=== PATIENT | male | born 1930 | race Caucasian/White ===

== ENCOUNTER 2016-06-16 10:38 | Inpatient (IN) | payer MEDICARE, BC, OTHER ==
--- NOTE | 2016-06-16 10:51 | ED ---
General Adult HPI - General Chief complaint: Altered Mental Status Stated complaint: Altered Mental Status Time Seen by Provider: 06/16/16 10:40 Source: patient, EMS, RN notes reviewed Mode of arrival: EMS Limitations: altered mental status, physical limitation - History of Present Illness Initial comments: Patient is a 85-year-old male presenting to the emergency Department after being found on the ground. Patient is essentially nonverbal and provides no history. Patient reportedly is a hospice patient and hospice nurse was on scene. Family had refused IV. It is unclear why patient was sent to the hospital. Family is not present at this time. Hospice nurse was not present. It is unclear why patient is on hospice. - Related Data Home Medications Medication Instructions Recorded Confirmed No Known Home Medications [No 06/16/16 06/16/16 Known Home Medications] Allergies Allergy/AdvReac Type Severity Reaction Status Date / Time No Known Allergies Allergy Verified 06/16/16 12:32 Review of Systems ROS Statement: Those systems with pertinent positive or pertinent negative responses have been documented in the HPI. ROS Other: All systems not noted in ROS Statement are negative. Limitations: ROS unobtainable due to patients medical condition Past Medical History Past Medical History: COPD, CVA/TIA, GERD/Reflux, Hyperlipidemia, Myocardial Infarction ([place]) Additional Past Medical History / Comment(s): orthostatic hypotension, [place] 1999. Last Myocardial Infarction Date:: unknown History of Any Multi-Drug Resistant Organisms: None Reported Past Surgical History: AICD, Appendectomy, Hernia Repair Additional Past Surgical History / Comment(s): defibrillator Past Anesthesia/Blood Transfusion Reactions: No Reported Reaction Type of Cardiac Device: AICD Device Placement Date:: 2013 Past Psychological History: No Psychological Hx Reported Smoking Status: Former smoker Past Alcohol Use History: Daily Additional Past Alcohol Use History / Comment(s): history of drinks a 5th of scotch daily Past Drug Use History: None Reported Additional Drug Use History / Comment(s): 4 months since last alcohol drink - Past Family History Mother History Unknown: Yes Family Medical History: No Reported History Father History Unknown: Yes Family Medical History: No Reported History General Exam Limitations: no limitations General appearance: lethargic Head exam: Present: atraumatic Eye exam: Present: other (Cataract) ENT exam: Present: mucous membranes dry Neck exam: Present: normal inspection. Absent: tenderness Respiratory exam: Present: normal lung sounds bilaterally Cardiovascular Exam: Present: tachycardia, irregular rhythm GI/Abdominal exam: Present: soft. Absent: tenderness Extremities exam: Present: other (Somewhat contracted arms and legs) Neurological exam: Present: altered, other (Very limited exam. Does follow some simple commands. Very limited speech. No focal deficits.) Expanded Eye Response: (1) no response Motor Response: (6) obeys commands (Does follow some Simple commands) Verbal Response: incomprehensible sounds Psychiatric exam: Present: flat affect Skin exam: Present: cyanosis (Fingers and toes) Course Vital Signs 06/16/16 06/16/16 10:40 13:05 Temperature 96.6 F L 96.7 F L Pulse Rate 57 L 62 Respiratory 16 16 Rate Blood Pressure 98/55 102/57 O2 Sat by Pulse 98 99 Oximetry - Reevaluation(s) Reevaluation #1: 06/16/16 11:33 Discussion had with daughter who would like IV and further testing done. She states patient should remain DO NOT RESUSCITATE however. EKG Findings - EKG Comments: EKG Findings:: A. fib with RVR, rate 114. QRS 76. QT 348. QTC 479. Right axis. Normal QRS. Lateral ST depression and T wave inversion. Medical Decision Making - Medical Decision Making Patient reexamined and slightly improved. Family states they're unclear why patient is exactly on hospice. They believe it was for generalized health. Patient has not been taking care of himself. Patient has been declining over the past week or more. Patient has not been eating well. Family updated on results and plan. Case discussed in detail with Dr. Cormier, who will admit for Dr. Ahuja. - Lab Data Result diagrams: 06/16/16 13:58 06/16/16 12:22 Lab Results 06/16/16 06/16/16 06/16/16 Range/Units 12:22 12:22 12:51 WBC (3.8-10.6) k/uL RBC (4.30-5.90) m/uL Hgb (13.0-17.5) gm/dL Hct (39.0-53.0) % MCV (80.0-100.0) fL MCH (25.0-35.0) pg MCHC (31.0-37.0) g/dL RDW (11.5-15.5) % Plt Count (150-450) k/uL Neutrophils % % Lymphocytes % % Monocytes % % Eosinophils % % Basophils % % Neutrophils # (1.3-7.7) k/uL Lymphocytes # (1.0-4.8) k/uL Monocytes # (0-1.0) k/uL Eosinophils # (0-0.7) k/uL Basophils # (0-0.2) k/uL Hypochromasia Macrocytosis Sodium 145 (137-145) mmol/L Potassium 4.8 (3.5-5.1) mmol/L Chloride 102 (98-107) mmol/L Carbon Dioxide 23 (22-30) mmol/L Anion Gap 20 mmol/L BUN 14 (9-20) mg/dL Creatinine 0.78 (0.66-1.25) mg/dL Est GFR (MDRD) Af Amer >60 (>60 ml/min/1.73 sqM) Est GFR (MDRD) Non-Af >60 (>60 ml/min/1.73 sqM) Glucose 131 H (74-99) mg/dL POC Glucose (mg/dL) 126 H (75-99) mg/dL POC Glu Regenerator Operator ID Jaky Salazar Calcium 9.6 (8.4-10.2) mg/dL Total Bilirubin 0.9 (0.2-1.3) mg/dL AST 40 (17-59) U/L ALT 24 (21-72) U/L Alkaline Phosphatase 153 H (38-126) U/L Total Creatine Kinase 72 (55-170) U/L CK-MB (CK-2) 1.9 (0.0-2.4) ng/mL CK-MB (CK-2) Rel Index 2.6 Troponin I 0.027 (0.000-0.034) ng/mL Total Protein 7.9 (6.3-8.2) g/dL Albumin 3.8 (3.5-5.0) g/dL Urine Color Urine Appearance (Clear) Urine pH (5.0-8.0) Ur Specific [place] (1.001-1.035) Urine Protein (Negative) Urine Glucose (UA) (Negative) Urine Ketones (Negative) Urine Blood (Negative) Urine Nitrate (Negative) Urine Bilirubin (Negative) Urine Urobilinogen (<2.0) mg/dL Ur Leukocyte Esterase (Negative) Urine RBC (0-5) /hpf Urine WBC (0-5) /hpf Urine WBC Clumps (None) /hpf Ur Squamous Epith Cells (0-4) /hpf Urine Bacteria (None) /hpf Hyaline Casts (0-2) /lpf Urine Mucus (None) /hpf Urine Opiates Screen (NotDetected) Ur Oxycodone Screen (NotDetected) Urine Methadone Screen (NotDetected) Ur Propoxyphene Screen (NotDetected) Ur Barbiturates Screen (NotDetected) U Tricyclic Antidepress (NotDetected) Ur Phencyclidine Scrn (NotDetected) Ur Amphetamines Screen (NotDetected) U Methamphetamines Scrn (NotDetected) U Benzodiazepines Scrn (NotDetected) Urine Cocaine Screen (NotDetected) U Marijuana (THC) Screen (NotDetected) 06/16/16 06/16/16 Range/Units 13:03 13:58 WBC 5.4 (3.8-10.6) k/uL RBC 3.94 L (4.30-5.90) m/uL Hgb 13.4 (13.0-17.5) gm/dL Hct 42.0 (39.0-53.0) % MCV 106.7 H (80.0-100.0) fL MCH 34.1 (25.0-35.0) pg MCHC 31.9 (31.0-37.0) g/dL RDW 13.9 (11.5-15.5) % Plt Count 144 L (150-450) k/uL Neutrophils % 83 % Lymphocytes % 6 % Monocytes % 7 % Eosinophils % 1 % Basophils % 0 % Neutrophils # 4.5 (1.3-7.7) k/uL Lymphocytes # 0.3 L (1.0-4.8) k/uL Monocytes # 0.4 (0-1.0) k/uL Eosinophils # 0.0 (0-0.7) k/uL Basophils # 0.0 (0-0.2) k/uL Hypochromasia Moderate Macrocytosis Moderate Sodium (137-145) mmol/L Potassium (3.5-5.1) mmol/L Chloride (98-107) mmol/L Carbon Dioxide (22-30) mmol/L Anion Gap mmol/L BUN (9-20) mg/dL Creatinine (0.66-1.25) mg/dL Est GFR (MDRD) Af Amer (>60 ml/min/1.73 sqM) Est GFR (MDRD) Non-Af (>60 ml/min/1.73 sqM) Glucose (74-99) mg/dL POC Glucose (mg/dL) (75-99) mg/dL POC Glu Regenerator Operator ID Calcium (8.4-10.2) mg/dL Total Bilirubin (0.2-1.3) mg/dL AST (17-59) U/L ALT (21-72) U/L Alkaline Phosphatase (38-126) U/L Total Creatine Kinase (55-170) U/L CK-MB (CK-2) (0.0-2.4) ng/mL CK-MB (CK-2) Rel Index Troponin I (0.000-0.034) ng/mL Total Protein (6.3-8.2) g/dL Albumin (3.5-5.0) g/dL Urine Color Dark Brown Urine Appearance Turbid (Clear) Urine pH 6.0 (5.0-8.0) Ur Specific [place] 1.022 (1.001-1.035) Urine Protein 2+ H (Negative) Urine Glucose (UA) Negative (Negative) Urine Ketones 2+ H (Negative) Urine Blood Small H (Negative) Urine Nitrate Positive (Negative) Urine Bilirubin 1+ H (Negative) Urine Urobilinogen 8.0 (<2.0) mg/dL Ur Leukocyte Esterase Large H (Negative) Urine RBC 23 H (0-5) /hpf Urine WBC >182 H (0-5) /hpf Urine WBC Clumps Moderate H (None) /hpf Ur Squamous Epith Cells 4 (0-4) /hpf Urine Bacteria Moderate H (None) /hpf Hyaline Casts 34 H (0-2) /lpf Urine Mucus Many H (None) /hpf Urine Opiates Screen Detected H (NotDetected) Ur Oxycodone Screen Not Detected (NotDetected) Urine Methadone Screen Not Detected (NotDetected) Ur Propoxyphene Screen Not Detected (NotDetected) Ur Barbiturates Screen Not Detected (NotDetected) U Tricyclic Antidepress Not Detected (NotDetected) Ur Phencyclidine Scrn Not Detected (NotDetected) Ur Amphetamines Screen Not Detected (NotDetected) U Methamphetamines Scrn Not Detected (NotDetected) U Benzodiazepines Scrn Not Detected (NotDetected) Urine Cocaine Screen Not Detected (NotDetected) U Marijuana (THC) Screen Not Detected (NotDetected) - Radiology Data Radiology results: image reviewed (Chest x-ray shows bilateral infiltrates and interstitial change. Pelvis x-ray shows no acute fracture. Computed tomography scan the brain shows old infarcts. No change from prior.) Disposition Clinical Impression: Altered mental status, Urinary tract infection, Pneumonia Disposition: ADMITTED IP TO THIS HOSP Condition: Serious
[2016-06-16] MEDS ORDERED: SODIUM CHLORIDE 0.9% 500 ML IV ONE (11:37)
[2016-06-16] MEDS ORDERED: SODIUM CHLORIDE 0.9% 1,000 ML IV ONE (11:37)
[2016-06-16 12:56] LABS: ALT 24 U/L (21-72); AST 40 U/L (17-59); Anion Gap 20 mmol/L; Blood Urea Nitrogen 14 mg/dL (9-20); Calcium 9.6 mg/dL (8.4-10.2); Carbon Dioxide 23 mmol/L (22-30); Chloride 102 mmol/L (98-107); Glucose 131 mg/dL (74-99); Non-African American GFR(MDRD) >60 (>60 ml/min/1.73 sqM); Potassium 4.8 mmol/L (3.5-5.1); Sodium 145 mmol/L (137-145); Total Bilirubin 0.9 mg/dL (0.2-1.3); Total Protein 7.9 g/dL (6.3-8.2)
[2016-06-16 12:57] LABS: Alkaline Phosphatase 153 U/L (38-126)
[2016-06-16 13:04] LABS: Glucose,Whole Blood 126 mg/dL (75-99)
[2016-06-16 13:14] LABS: Troponin I 0.027 ng/mL (0.000-0.034)
[2016-06-16 13:15] LABS: Creatine Kinase MB 1.9 ng/mL (0.0-2.4)
[2016-06-16 13:32] LABS: Appearance,Urine Turbid (Clear); Bilirubin,Urine 1+ (Negative); Glucose,Urine (UA) Negative (Negative); Ketones,Urine 2+ (Negative); Leukocyte Esterase,Urine Large (Negative); Mucus,Urine Many /hpf; Nitrite,Urine Positive (Negative); Particle Count 103793; Protein,Urine 2+ (Negative); RBC,Urine 23 /hpf (0-5); Specific Gravity,Urine 1.022 (1.001-1.035); Squamous Epithelial Cell,Urine 4 /hpf (0-4); UA Billing (MACRO vs. MICRO) MICRO; WBC,Urine >182 /hpf (0-5)
[2016-06-16 13:58] LABS: Bacteria,Urine Moderate /hpf
--- NOTE | 2016-06-16 14:03 | CT ---
EXAMINATION TYPE: CT brain wo con DATE OF EXAM: 06/16/2016 1:56 PM COMPARISON: 03/26/2015 HISTORY: Patient poor historian CT DLP: [id number] mGycm Automated exposure control for dose reduction was used. FINDINGS: There is cerebral cortical atrophy. There is hypodensity in the right posterior frontal lobe and also the left temporal lobe related to old infarcts. There is no mass effect nor midline shift. There is no evidence of intracranial hemorrhage. The calvarium is intact. IMPRESSION: Bilateral old cerebral infarcts. No acute intracranial abnormality. Cerebral atrophy. No significant change compared to old exam.
--- NOTE | 2016-06-16 14:07 | XR ---
EXAMINATION TYPE: XR chest 2V DATE OF EXAM: 06/16/2016 1:56 PM COMPARISON: 12/25/2015 HISTORY: Altered mental status TECHNIQUE: Frontal and lateral views of the chest are obtained. FINDINGS: There is diffuse pneumonic consolidation in the left lung. There is extensive interstitial infiltrate in the right lung. There is a left axillary pacemaker with the lead tips in the right juanita tricle. Thoracic aorta is atheromatous. There is blunting of left costophrenic angle. IMPRESSION: There is consolidation and pleural fluid on the left side with probably also some volume loss. Diffuse interstitial infiltrate in the right lung. The chest appears slightly worse than old e xam. I do not suspect heart failure. Pulmonary vascularity is difficult to evaluate because of the ex tensive lung disease.
--- NOTE | 2016-06-16 14:08 | XR ---
EXAMINATION TYPE: XR pelvis AP view DATE OF EXAM: 06/16/2016 1:56 PM COMPARISON: NONE HISTORY: Pain TECHNIQUE: Single view FINDINGS: The pelvic ring is intact. Proximal femurs are intact. There is acetabular spurring. Sacroi liac joints are normal. There is a rounded metal density over the left ischium. 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 No fracture. Possible BB foreign body.
[2016-06-16 14:17] LABS: Basophils % (A) 0 %; CH 33.5; CHCM 31.5; Eosinophils % (A) 1 %; HDW 3.29; HGB 13.4 gm/dL (13.0-17.5); Hypochromasia Moderate; Luc # (Auto) 0.15; Luc % (Auto) 3; Lymphocytes # (A) 0.3 k/uL (1.0-4.8); Lymphocytes % (A) 6 %; MCH 34.1 pg (25.0-35.0); MCHC 31.9 g/dL (31.0-37.0); MCV 106.7 fL (80.0-100.0); Macrocytosis Moderate; Mean Platelet Volume 8.4; Monocytes # (A) 0.4 k/uL (0-1.0); Monocytes % (A) 7 %; Neutrophils # (A) 4.5 k/uL (1.3-7.7); Neutrophils % (A) 83 %; RBC 3.94 m/uL (4.30-5.90); RDW 13.9 % (11.5-15.5); WBC 5.4 k/uL (3.8-10.6)
[2016-06-16] MEDS ORDERED: PNEUMONIA PROTOCOL UTILIZED 1 EACH MISC PO PRN (15:12)
[2016-06-16] MEDS ORDERED: AZITHROMYCIN 500 MG in SODIUM CHLORIDE 0.9% 250 ML IVPB STA (15:12)
[2016-06-16] MEDS ORDERED: IPRATROPIUM-ALBUTEROL 3 ML NEB INHALATION PRN (15:12)
[2016-06-16] MEDS ORDERED: SODIUM CHLORIDE 0.9% 1,000 ML IV SCH (15:15)
[2016-06-16 15:21] LABS: INR 1.1 (<1.1); Prothrombin Time 11.1 sec (9.0-12.0)
[2016-06-16 15:45] LABS: Partial Thromboplastin Time 20.7 sec (22.0-30.0)
[2016-06-16] MEDS ORDERED: LORazepam 2 MG/ML SYRINGE IV PRN (17:57)
[2016-06-16] MEDS ORDERED: SCOPOLAMINE 1.5MG/72HR PATCH TRANSDERM PRN (17:57)
--- NOTE | 2016-06-16 17:58 | P.CNNES ---
History of Present Illness Consult date: 06/16/16 Reason for Consult: Patient with altered mental status and sepsis. History of Present Illness: This patient is a 85-year-old right-handed white male who is currently residing at [facility]. Apparently this morning he was found collapsed on the floor by one of the attending nurses. He was hard to arouse at the [facility]. He was then transported to the emergency room for further evaluation. It was unclear whether the patient was considered full hospice care at the nursing facility. His daughter is at bedside and states that he has been active at the [facility] and this was a new finding in terms of him being collapsed and unresponsive. He was brought into the emergency room and was evaluated in the ER by Dr. Mo. He underwent a computed tomography scan of the brain which revealed bilateral old cerebral infarcts. There was no acute pain intracranial abnormality. There was some cerebral atrophy. Laboratory testing revealed the patient to have a fulminant urinary tract infection. He was started on IV antibiotics and admitted to the hospital. Apparently he was very hard to arouse this morning according to the daughter. He is now slowly opening his eyes. He does follow only simple commands. According to the daughter he has not been eating well for the past 1 month and has been losing weight. He has not been taking proper care of himself. According to the daughter when they found him this morning collapsed on the floor he was foaming at the mouth. He has no previous history of seizures. He did not have any lacerations or contusions to that. No evidence of biting his tongue. Patient is now been admitted for complete neurological evaluation. Family is now going to make a decision on further care for this patient during this admission. Neurology is now been consulted for further evaluation and recommendations. Review of Systems Constitutional: Denies chills, Denies fever Eyes: denies blurred vision, denies pain Ears, nose, mouth and throat: Denies headache, Denies sore throat Cardiovascular: Denies chest pain, Denies shortness of breath Respiratory: Denies cough Gastrointestinal: Denies abdominal pain, Denies diarrhea, Denies nausea, Denies vomiting Musculoskeletal: Denies myalgias Integumentary: Denies pruritus, Denies rash Neurological: Reports aphasia, Reports change in mentation, Reports confusion, Reports convulsions, Reports memory loss, Denies numbness, Denies weakness Psychiatric: Denies anxiety, Denies depression Endocrine: Denies fatigue, Denies weight change Past Medical History Past Medical History: COPD, CVA/TIA, GERD/Reflux, Hyperlipidemia, Myocardial Infarction ([place]) Additional Past Medical History / Comment(s): orthostatic hypotension, [place] 1999. Last Myocardial Infarction Date:: unknown History of Any Multi-Drug Resistant Organisms: None Reported Past Surgical History: AICD, Appendectomy, Hernia Repair Additional Past Surgical History / Comment(s): defibrillator Past Anesthesia/Blood Transfusion Reactions: No Reported Reaction Type of Cardiac Device: AICD Device Placement Date:: 2013 Past Psychological History: No Psychological Hx Reported Smoking Status: Former smoker Past Alcohol Use History: Daily Additional Past Alcohol Use History / Comment(s): history of drinks a 5th of scotch daily Past Drug Use History: None Reported Additional Drug Use History / Comment(s): 4 months since last alcohol drink - Past Family History Mother History Unknown: Yes Family Medical History: No Reported History Father History Unknown: Yes Family Medical History: No Reported History Medications and Allergies Home Medications Medication Instructions Recorded Confirmed Type No Known Home Medications [No 06/16/16 06/16/16 History Known Home Medications] Allergies Allergy/AdvReac Type Severity Reaction Status Date / Time No Known Allergies Allergy Verified 06/16/16 12:32 Physical Examination - Vital Signs Vital Signs: Vital Signs Temp Pulse Resp BP Pulse Ox 06/16/16 15:32 97.4 F L 72 20 102/54 100 - Constitutional General appearance: average body habitus, cooperative, thin - EENT EENT: PERRL, mucous membranes moist - Respiratory Respiratory: lungs clear, normal breath sounds - Cardiovascular Cardiovascular: regular rate, normal S1, normal S2 Extremities: no peripheral edema bilaterally - Gastrointestinal Gastrointestinal: normoactive bowel sounds - Integumentary Integumentary: normal - Neurologic Cranial nerve examination: PERRL, VFF, face symmetric, tongue midline, intact gag reflex, normal palatal elevation Speech examination: global aphasia Sensorimotor examination: intact Motor examination - right side: 3/5: biceps, triceps, wrist flexion, wrist extension, yard supervisor, hip flexors, knee extensors, dorsiflexion, toe extension (EHL) , plantarflexion Motor examination - left side: 3/5: biceps, triceps, wrist flexion, wrist extension, yard supervisor, hip flexors, knee extensors, dorsiflexion, toe extension (EHL) , plantarflexion Detailed sensory examination: intact Reflex and gait examination: intact Reflexes: 1+: ankle, bicep, knee, tricep - Musculoskeletal Musculoskeletal: no pain - Psychiatric Psychiatric: mood/affect appropriate, cooperative Results - Laboratory Findings CBC and BMP: 06/16/16 13:58 06/16/16 12:22 Assessment and Plan (1) Acute encephalopathy Status: Acute Code(s): G93.40 - ENCEPHALOPATHY, UNSPECIFIED (2) Urinary tract infection Status: Acute Code(s): N39.0 - URINARY TRACT INFECTION, SITE NOT SPECIFIED (3) Protein calorie malnutrition Status: Acute Code(s): E46 - UNSPECIFIED PROTEIN-CALORIE MALNUTRITION (4) Dementia Status: Acute Code(s): F03.90 - UNSPECIFIED DEMENTIA WITHOUT BEHAVIORAL DISTURBANCE Plan: This patient is a 85-year-old right-handed white male who was found collapsed in his apartment at [facility] early this morning. It is unclear how long he may have been down. He was found to be foaming at the mouth when the nursing staff found him. He was transported to the emergency room where he was further evaluated today. He was seen in the ER by Dr. Mo. He underwent a computed tomography scan of the brain which was negative for any acute stroke or hemorrhage. There is evidence of bilateral old occipital stroke. Patient was found to have evidence of a fulminant urinary tract infection. He was started on IV antibiotics and admitted to Hospital. This patient likely has a diffuse metabolic encephalopathy secondary to urinary tract infection. Family is in the process of making a decision on long-term care for the patient. It is unclear whether they want him to go into a hospice program. They may also consider taking him home following this discharge. Doubt that he had a seizure but we will further evaluate with a routine EEG. His overall prognosis at this time remains very guarded. This case was discussed at length with the patient' s daughter at bedside. All of her questions are answered. She is aware of her father's very guarded condition at this time. Time with Patient: Greater than 30
--- NOTE | 2016-06-16 19:06 | HP ---
DATE OF ADMISSION: 06/06/2016 Patient is an 85-year-old with history of congestive heart failure, ejection fraction of 45% and history of dementia. Patient was made hospice last December and since then patient is in an [facility] home under hospice care. Patient apparently has dementia at that time and patient was made hospice by Neurology services. Apparently the patient has not been eating or drinking well. Patient's power of bookbinder chief is daughter. I did talk to power of bookbinder chief by phone and another daughter here at the bedside. Patient had a fall today after which patient was brought in here. Patient's family wanted does not know what to do when he fell in [facility]FC home apparently. Patient is requiring more care there in spite of being Hospice. Because of that reason family has no clue what to do and patient was brought in here. Patient was found to have pneumonia, is being treated for pneumonia. Had extensive discussion with both the daughter's, one power of bookbinder chief and the sister. Patient was initially started on ceftriaxone and azithromycin. After extensive discussion with the family members, it appears like patient himself wanted to be hospice and comfort care and that appears to be his wishes. After discussion with the family, we came to decision to make and after agreement after both daughters agreed, patient was made hospice again and we will treat him like inpatient hospice. We will get hospice services to the see the patient. shipping manager to see the patient. We will try and find an appropriate location for the patient, probably skilled nursing hospice and patient in the past, refused everything. Patient has an AICD in the past, which was stopped with magnet in the past. REVIEW OF SYSTEMS: Unable to obtain, the patient is although awake. PAST MEDICAL HISTORY: Significant for COPD, CVA, gastroesophageal reflux disease, congestive heart failure, chronic systolic dysfunction; ejection fraction of around 40%, myocardial infarction in the past, AICD which is not working, appendectomy, hernia repair. SOCIAL HISTORY: Former smoker, no alcohol abuse or any drug abuse. FAMILY HISTORY: Not relevant at this point of time, as patient is hospice now. PHYSICAL EXAMINATION: VITAL SIGNS: Temperature 97.4, pulse of 72, respiratory rate of 20, blood pressure is 102/54, saturating at 100% on 2 L O2 by nasal cannula. GENERAL: Very thin built, nonverbal, awake. HEENT: Pupils are round and equally reacting to light. EOMI. No scleral icterus. No conjunctival pallor. Normocephalic, atraumatic. No pharyngeal erythema. No thyromegaly. CARDIOVASCULAR: S1 and S2 present. No murmurs, rubs, or gallops. PULMONARY: Chest is clear to auscultation, no wheezing or crackles. ABDOMEN: Soft, nontender, nondistended, normoactive bowel sounds. No palpable organomegaly. MUSCULOSKELETAL: No joint swelling or deformity. EXTREMITIES: No cyanosis, clubbing, or pedal edema. NEUROLOGICAL: Unable to assess. Patient has significant marked muscle medicate, and very cachectic, severely malnourished. SKIN: No rashes. LABORATORY DATA: Reviewed. Although irrelevant at this point of time. UA any significantly abnormal although irrelevant at this point of time. Chest x-ray showed consolidation and parapneumonic effusion on the left side, diffuse interstitial infiltrate in the right lung. The brain CT and the pelvic CT were reviewed. Brain CT showed old infarct. ASSESSMENT AND PLAN: 1. Pneumonia probably left middle lobe pneumonia with parapneumonic effusion. 2. Congestive heart failure with possible exacerbation, chronic systolic dysfunction. 3. Cerebrovascular accidents/ transient ischemic attacks in the past. 4. 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 5. Hyperlipidemia. 6. Myocardial infarction in the past. 7. Coronary artery disease. 8. AICD which is nonworking and nonfunctional at this point of time. PLAN: As mentioned above. After extensive discussion with the family members, patient was made hospice and patient will be initiated on hospice care here. Hospice will be reconsulted again. shipping manager and director of social services will be consulted as well.
--- NOTE | 2016-06-17 11:43 | P.PN ---
Subjective This patient is a 85-year-old right-handed white male who was seen in neurology consultation yesterday for altered mental status and dementia. Patient was residing at [facility] and apparently was on hospice care. He had a fall and was subsequently brought into the hospital. He was found to have severe pneumonia and urinary tract infection. The patient apparently does have power of privacy attorney given to his 2 daughters. There was a discussion yesterday with the primary care physician and the 2 daughters and it was decided to have the patient be made hospice care and possible transfer to hospice facility. He has shown no significant improvement in his neurological status from yesterday. He remains obtunded. He is on appropriate antibiotic therapy and shows only minimal improvement. He is being considered for hospice care and possible discharge either to their home or to a extended care facility. We will continue to follow along for this patient during this admission. His prognosis remains very guarded. Objective - Vital Signs Vital signs: Vital Signs Temp 97.6 F 06/17/16 07:29 Pulse 88 06/17/16 07:29 Resp 18 06/17/16 07:29 BP 105/57 06/17/16 07:29 Pulse Ox 96 06/17/16 07:29 Intake & Output 06/16/16 06/17/16 06/17/16 18:59 06:59 18:59 Intake Total 350 Output Total 200 Balance 150 Weight 63.503 kg Intake: Intake, IV Titration 350 Amount Sodium Chloride 0.9% 1, 350 000 ml @ 100 mls/hr IV . Q10H [facility] Rx#:[id number] Output: Urine 200 Other: Voiding Method Diaper Diaper - Exam Physical examination: PHYSICAL EXAMINATION: Patient is resting comfortably in bed. Patient is confused and oriented 1 VITAL SIGNS: Blood pressure is [105/57]. Heart rate is [88]. Respiration is [18] . Temperature is [97.7]. HEENT: Head is atraumatic, neck is supple, there were no carotid bruits. CHEST: Lungs are clear to auscultation and percussion. CARDIAC: S1, S2 normal rate and rhythm. There is no murmur. ABDOMEN: Soft and nontender. Bowel sounds are present. EXTREMITIES: There is no pedal edema. Peripheral pulses are present. Neurological examination: Patient's neurological examination is unchanged from yesterday. - Labs CBC & Chem 7: 06/16/16 13:58 06/16/16 12:22 Assessment and Plan (1) Acute encephalopathy Status: Acute Code(s): G93.40 - ENCEPHALOPATHY, UNSPECIFIED (2) Urinary tract infection Status: Acute Code(s): N39.0 - URINARY TRACT INFECTION, SITE NOT SPECIFIED (3) Protein calorie malnutrition Status: Acute Code(s): E46 - UNSPECIFIED PROTEIN-CALORIE MALNUTRITION (4) Dementia Status: Acute Code(s): F03.90 - UNSPECIFIED DEMENTIA WITHOUT BEHAVIORAL DISTURBANCE Plan: This patient is a 85-year-old male with known history of dementia. He was residing at [facility] and apparently sustained a fall and was brought into the hospital. He was found to have evidence of a severe pneumonia as well as urinary tract infection. His power of privacy attorney and 2 daughters had a discussion with the admitting physician and he has to be considered for hospice care and possible discharge to a extended care facility. He has shown no significant improvement in his overall neurological status. He has a known history of underlying dementia. We will continue all supportive care for the patient at this time. His overall prognosis remains very guarded.
[2016-06-17] MEDS ORDERED: AZITHROMYCIN 500 MG TAB PO SCH (12:00)
--- NOTE | 2016-06-17 13:41 | PN ---
Patient is an 85-year-old with congestive heart failure history and history of dementia and patient is on hospice and family in ER reversed his hospital status and after discussion with the family and after their appropriate understanding, patient was made hospice again and all IV antibiotics were discontinued and patient is on comfort measures at this point of time. Patient is arousable and comfortable lying in the bed without any pain or discomfort or in respiratory distress and social work case manager and social scientist will discuss with the family and hospice and appropriate plan will be made tomorrow to the [facility] with hospice or home hospice. Review of systems unable to obtain due to his clinical condition. Medications were reviewed, and patient is only on comfort medications at this point of time. PHYSICAL EXAMINATION: Temperature 97.6, pulse of 88, respiratory rate of 18, blood pressure is 104/57. Patient is comfortable, arousable. Not in respiratory distress. LUNG EXAMINATION: Rhonchus breath sounds. CARDIOVASCULAR: S1 and S2 present. Patient is sinus rhythm. No murmurs, rubs, or gallops. NEUROLOGICAL: The patient is on IV morphine and arousable and comfortable. SKIN: No rashes. LABORATORY DATA: No lab data from today. 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 PLAN: Comfort care and comfort measures as mentioned above and rest of the plan as mentioned in the interval history.
[2016-06-18] MEDS: MORPHINE SULFATE 2 MG/ML SYRINGE IV PRN (14:40)
--- NOTE | 2016-06-18 19:54 | P.PN ---
Subjective This patient is a 85-year-old right-handed white male who was seen in neurology consultation yesterday for altered mental status and dementia. Patient was residing at [facility] and apparently was on hospice care. He had a fall and was subsequently brought into the hospital. He was found to have severe pneumonia and urinary tract infection. The patient apparently does have power of fish rod maker given to his 2 daughters. There was a discussion yesterday with the primary care physician and the 2 daughters and it was decided to have the patient be made hospice care and possible transfer to hospice facility. He has shown no significant improvement in his neurological status from yesterday. He remains obtunded. He is on appropriate antibiotic therapy and shows only minimal improvement. He is being considered for hospice care and possible discharge either to their home or to a extended care facility. Family had a discussion with the admitting physician and the patient is now been made hospice care. All IV antibiotics were discontinued yesterday and he has been made comfort care measures. Plan is for possible half-way placement with hospice care or home hospice. We will continue to follow along for this patient during this admission. His prognosis remains very guarded. Objective - Vital Signs Vital signs: Vital Signs Temp 97.7 F 06/18/16 15:13 Pulse 104 H 06/18/16 16:00 Resp 18 06/18/16 16:00 BP 96/52 06/18/16 15:13 Pulse Ox 93 L 06/18/16 15:13 Intake & Output 06/18/16 06/18/16 06/19/16 06:59 18:59 06:59 Intake Total 100 Balance 100 Weight 63.503 kg Intake: Oral 100 Other: Voiding Method Diaper Diaper # Voids 0 0 - Exam Physical examination: PHYSICAL EXAMINATION: Patient is resting comfortably in bed. Patient is confused and oriented 1 VITAL SIGNS: Blood pressure is [96/52]. Heart rate is [104]. Respiration is [18] . Temperature is [97.7]. HEENT: Head is atraumatic, neck is supple, there were no carotid bruits. CHEST: Lungs are clear to auscultation and percussion. CARDIAC: S1, S2 normal rate and rhythm. There is no murmur. ABDOMEN: Soft and nontender. Bowel sounds are present. EXTREMITIES: There is no pedal edema. Peripheral pulses are present. Neurological examination: Patient's neurological examination is unchanged from yesterday. Patient remains obtunded but arousable. He appears to be comfortable at this time and is without any pain or discomfort. - Labs CBC & Chem 7: 06/16/16 13:58 06/16/16 12:22 Labs: Microbiology - Last 24 Hours (Table) 06/16/16 16:59 Blood Culture - Preliminary Blood No Growth after 48 hours 06/16/16 17:54 Blood Culture - Preliminary Blood No Growth after 24 hours Assessment and Plan (1) Acute encephalopathy Status: Acute Code(s): G93.40 - ENCEPHALOPATHY, UNSPECIFIED (2) Urinary tract infection Status: Acute Code(s): N39.0 - URINARY TRACT INFECTION, SITE NOT SPECIFIED (3) Protein calorie malnutrition Status: Acute Code(s): E46 - UNSPECIFIED PROTEIN-CALORIE MALNUTRITION (4) Dementia Status: Acute Code(s): F03.90 - UNSPECIFIED DEMENTIA WITHOUT BEHAVIORAL DISTURBANCE Plan: This patient is a 85-year-old male admitted with history of dementia and altered mental status. Patient is now been made hospice care and all antibiotics and further treatment were withdrawn yesterday. He is being considered for discharge to [facility] with hospice care or possible home discharge with outpatient hospice. Patient shows no significant improvement in his underlying neurological status. He has history of underlying vascular dementia. We will continue to follow his progress closely. His overall prognosis at this time remains very guarded.
[2016-06-18 22:25] VITALS: BP 92/54; PULSE 94; RESP 16; TEMP 97.6
--- NOTE | 2016-06-19 06:20 | PN ---
DATE OF SERVICE: 06/18/2016 PRESENTING COMPLAINT: Getting confused. INTERVAL HISTORY: This patient with congestive heart failure, dementia, family decided to make the patient go to hospice house. Patient is barely eating as per the nurse at the bedside. The patient says a few words in there. Review of systems cannot be done because of the patient confusion. Current medications include morphine p.r.n., scopolamine patch. On examination, temperature 97.7, pulse 104, respiration 18, blood pressure 96/52, pulse ox 93% on 3 L. GENERAL APPEARANCE: Lying in bed, awake. EYES: Pupils equal. Conjunctivae normal. NECK: JVD not raised. Mass not palpable. RESPIRATORY: Effort normal. LUNGS: Decreased breath sounds. CARDIOVASCULAR: First and second seconds normal. PSYCH: Patient is rather confused. INVESTIGATIONS: No blood work. ASSESSMENT: 1. Coronary artery disease with prior history of myocardial infarction. 2. Advancing Alzheimer's dementia, late onset, element of psychosis. 3. Automatic implantable cardioverter-defibrillator, nonfunctioning. 4. Chronic congestive heart failure from systolic dysfunction; ejection fraction 45% from underlying coronary artery disease. PLAN: Patient is now on comfort medications. Patient is going to [facility] tomorrow. I spoke to the nurse, things have been arranged.
[2016-06-19] MEDS: MORPHINE SULFATE 2 MG/ML SYRINGE IV PRN (16:09)
--- NOTE | 2016-06-21 08:53 | DS ---
DATE OF ADMISSION: 06/16/2016 DATE OF DISCHARGE: 06/19/2016 FINAL DIAGNOSES: 1. Advancing Alzheimer's dementia, late onset, with element of psychosis. 2. Automatic implantable cardioverter-defibrillator, nonfunctioning. 3. Chronic congestive heart failure from systolic dysfunction. 4. Coronary artery disease with prior history of myocardial infarction. 5. Congestive heart failure with EF of 45%, underlying coronary artery disease. 6. Pneumonia with parapneumonic effusion, present on admission. HOSPITAL COURSE: This patient with multiple problems, continued to do poorly was admitted. After discussions, family agreed with hospice care. On the day of discharge, care was again discussed with the family. Questions were answered and also the hospital coordinator. ON EXAMINATION: LUNGS: Decreased breath sounds. CARDIOVASCULAR: First and second sounds normal. [facility] [place]. DISCHARGE MEDICATIONS: 1. DuoNeb q.4 p.r.n. 2. Ativan 1 mg p.o. q.4 p.r.n. for agitation. 3. Roxanol 5 mg q.4 p.r.n. for pain. 4. Scopolamine patch. DIET: Comfort feeding. DISPOSITION: [facility] with [facility]. Discharge planning more than 35 minutes.
== END 2016-06-19 17:35 | disposition hospice, inpatient (51) | DRG 190 ==
LOC: EC 10:38 → 5MS5E 15:12
PROVIDERS: ADMIT Hospitalist; ATTEND Hospitalist
DX: J44.0 Chronic obstructive pulmonary disease with (acute) lower respiratory infection (principal); J18.9 Pneumonia, unspecified organism; G93.41 Metabolic encephalopathy; I50.22 Chronic systolic (congestive) heart failure; N39.0 Urinary tract infection, site not specified; E46 Unspecified protein-calorie malnutrition; F05 Delirium due to known physiological condition; Z51.5 Encounter for palliative care; G30.1 Alzheimer's disease with late onset; F02.80 Dementia in other diseases classified elsewhere, unspecified severity, without behavioral disturbance, psychotic disturbance, mood disturbance, and anxiety; F01.50 Vascular dementia, unspecified severity, without behavioral disturbance, psychotic disturbance, mood disturbance, and anxiety; K21.9 Gastro-esophageal reflux disease without esophagitis; I25.2 Old myocardial infarction; I25.10 Atherosclerotic heart disease of native coronary artery without angina pectoris; E78.5 Hyperlipidemia, unspecified; I95.1 Orthostatic hypotension; Z87.891 Personal history of nicotine dependence; Z95.810 Presence of automatic (implantable) cardiac defibrillator; Z86.73 Personal history of transient ischemic attack (TIA), and cerebral infarction without residual deficits; W19.XXXA Unspecified fall, initial encounter
CPT/HCPCS: 36415; 51701; 70450; 71020; 72170; 80053; 80306; 81001; 82550; 82553; 84484; 85025; 85610; 85730; 87040; 93005; 94640; 96360; 96361; 99285